=== PATIENT | male | born 2000 | race American Indian/Alaskan Native ===

== ENCOUNTER 2020-12-20 23:36 | Emergency (ER) | payer MEDICAID ==
[2020-12-21 01:19] VITALS: BP 142/80; PULSE 82
[2020-12-21] MEDS ORDERED: Ibuprofen 400 MG Tab PO ONE (03:05)
--- NOTE | 2020-12-21 03:14 | EDM.PDOC ---
ED HPI GENERAL MEDICAL PROBLEM - General Chief Complaint: Lower Extremity Injury/Pain Stated Complaint: PELVIC HIP PAIN Time Seen by Provider: 12/21/20 02:30 Source of Information: Reports: Patient, Family (Grandmother), RN, RN Notes Reviewed History Limitations: Reports: No Limitations - History of Present Illness INITIAL COMMENTS - FREE TEXT/NARRATIVE: Nigel is a 20 y/o male with a history of traumatic pelvic fracture who presents to the ED via personal vehicle with grandmother for complaints of left hip pain. The patient states he has been experiencing chronic pain to this hip since his injury and was evaluated at the [facility] this past week following a fall. X-rays were performed at this appointment and the patient was told he required follow up with his orthopedic surgeon. He characterizes his current pain as sharp and localized to the left, lateral hip. He denies any fall today, loss of motor or sensory function to the LLE, inability to void, bowel/bladder incontinence, or hematuria. He has taken no medication for his pain and has not trial any supportive cares. Left Hip Pain Score (Numeric/FACES): 8 - Related Data Allergies Allergy/AdvReac Type Severity Reaction Status Date / Time No Known Allergies Allergy Verified 12/21/20 01:24 Home Meds: Home Meds . [No Known Home Meds] 06/06/14 [History] Past Medical History - Past Health History Medical/Surgical History: Denies Medical/Surgical History Social & Family History - Tobacco Use Tobacco Use Status *Q: Current Every Day Tobacco User Years of Tobacco use: 4 Packs/Tins Daily: 0.5 - Caffeine Use Caffeine Use: Reports: None - Recreational Drug Use Recreational Drug Use: No Review of Systems - Review of Systems Review Of Systems: Comprehensive ROS is negative, except as noted in HPI. ED EXAM, GENERAL - Physical Exam Exam: See Below Exam Limited By: No Limitations General Appearance: No Apparent Distress, Thin, Other (Patient sleeping upon writers entrance to the room; Roused appropriately and active during assessment) Eye Exam: Bilateral Eye: EOMI, Normal Inspection, PERRL (4mm) Ears: Normal External Exam, Normal Canal, Hearing Grossly Normal, Normal TMs Ear Exam: Bilateral Ear: Auricle Normal, Canal Normal, TM normal Nose: Normal Inspection, Normal Mucosa, No Blood Throat/Mouth: Normal Inspection, Normal Lips, Normal Teeth, Normal Gums, Normal Oropharynx, Normal Voice, No Airway Compromise Head: Atraumatic, Normocephalic Neck: Normal Inspection, Supple, Non-Tender, Full Range of Motion. No: Lymphadenopathy (L), Lymphadenopathy (R) Respiratory/Chest: No Respiratory Distress, Lungs Clear, Normal Breath Sounds, No Accessory Muscle Use, Chest Non-Tender Cardiovascular: Normal Peripheral Pulses, Regular Rate, Rhythm, No Edema, No Gallop, No JVD, No Murmur, No Rub Peripheral Pulses: 1+: Posterior Tibial (L), Posterior Tibial (R), 2+: Radial (L), Radial (R), Dorsalis Pedis (L), Dorsalis Pedis (R) GI/Abdominal: Normal Bowel Sounds, Soft, Non-Tender, No Organomegaly, No Distention, No Abnormal Bruit, No Mass. No: Guarding, Rigid, Rebound Back Exam: Normal Inspection, Full Range of Motion. No: CVA Tenderness (L), CVA Tenderness (R), Muscle Spasm, Paraspinal Tenderness, Vertebral Tenderness Extremities: Normal Range of Motion, No Pedal Edema, Normal Capillary Refill, Leg Pain (To left lateral hip). No: Joint Swelling, Increased Warmth, Mottled, Pallor, Redness Neurological: Alert, Oriented, CN II-XII Intact, Normal Cognition, Normal Gait, Normal Reflexes, No Motor/Sensory Deficits Psychiatric: Normal Affect, Normal Mood Skin Exam: Warm, Dry, Intact, Normal Color, No Rash. No: Cyanosis, Jaundice, Mottled, Pallor Lymphatic: No Adenopathy Course - Vital Signs Last Recorded V/S: Last Vital Signs Temp 98.3 F 12/21/20 01:18 Pulse 82 12/21/20 01:18 Resp 20 12/21/20 01:18 BP 142/80 H 12/21/20 01:18 Pulse Ox 99 12/21/20 01:18 - Orders/Labs/Meds Meds: Medications Discontinued Medications Generic Name Dose Route Start Last Admin Trade Name Freq PRN Reason Stop Dose Admin Ibuprofen 400 mg 12/21/20 03:05 12/21/20 03:13 Ibuprofen 400 Mg Tab PO 12/21/20 03:06 400 mg ONETIME ONE Administration - Re-Assessments/Exams Free Text/Narrative Re-Assessment/Exam: 12/21/20 Patient back to sleep immediately upon promotion writer leaving room following assessment. Ibuprofen 400mg administered for pain. Findings of examination reviewed with patient and grandmother. Will treat nausea with Zofran. Discussed supportive cares for hip pain, as well as red flag signs and symptoms which would warrant reevaluation. Patient instructed to follow up with his orthopedic surgeon regarding today's visit. Discussed as patient is only a few month out from initial surgery, he does not require a new referral and should contact his surgeon's clinic. Patient and grandmother verbalized understanding and agreement with the plan of care. Departure - Departure Time of Disposition: 03:08 Disposition: Home, Self-Care 01 Condition: Good Clinical Impression: History of pelvic fracture, Hip pain, left, Fall from ground level - Discharge Information *PRESCRIPTION DRUG MONITORING PROGRAM REVIEWED*: Not Applicable *COPY OF PRESCRIPTION DRUG MONITORING REPORT IN PATIENT NELLY: Not Applicable Instructions: Hip Pain Referrals: Wilmer Dalton [Primary Care Provider] - Forms: ED Department Discharge Additional Instructions: 1.) Follow up with your orthopedic surgeon regarding ongoing pain; you do not require another referral as injury was within the last 12 months. 2.) You may take ibuprofen (Advil/Motrin) 400mg every six hours, as pain persists. You may also take acetaminophen (Tylenol) 650mg every six hours, as pain persists. You may stagger these medications so you are receiving a dose every three hours. 3.) You may alternate heat and ice to the affected area, as pain persists. Sepsis Event Note (ED) - Evaluation Sepsis Screening Result: No Definite Risk
== END 2020-12-21 03:23 | disposition home or self-care (01) ==
LOC: DL.ED 23:36
DX: M25.552 Pain in left hip (principal); Z72.0 Tobacco use; W18.39XA Other fall on same level, initial encounter
CPT/HCPCS: 99283; A9270

== ENCOUNTER → 2021-05-30 20:52 | Emergency (ER) | payer MEDICAID | END | disposition left against medical advice (07) | LOC: DL.ED 20:52 | DX: Z53.21 Procedure and treatment not carried out due to patient leaving prior to being seen by health care provider (principal) ==

== ENCOUNTER 2022-04-23 15:24 | Emergency (ER) | payer MEDICAID ==
[2022-04-23] MEDS ORDERED: HYDROmorphone 0.5 MG/0.5 ML Syringe IVPUSH ONE (15:30)
[2022-04-23 15:40] VITALS: BP 127/111; PULSE 116
== END 2022-04-23 16:27 | disposition home or self-care (01) ==
LOC: DL.ED 15:24
DX: M25.552 Pain in left hip (principal); W18.40XA Slipping, tripping and stumbling without falling, unspecified, initial encounter
CPT/HCPCS: 96374; 99282; 99284-25

== ENCOUNTER 2023-10-23 10:07 | Emergency (ER) | payer SELFPAY ==
[2023-10-23 10:40] LABS: BASOPHILS PERCENT AUTO 0.2 % (0.0-1.0); EOSINOPHILS PERCENT AUTO 0.3 % (1.0-3.0); HEMATOCRIT 40.9 % (40.0-54.0); LYMPHOCYTES PERCENT AUTO 19.4 % (20.5-50.1); MEAN CORPUSCULAR HEMOGLOBIN 31.1 pg (27.0-34.0); MEAN CORPUSCULAR HGB CONC 34.2 g/dL (33.0-35.0); MEAN CORPUSCULAR VOLUME 90.9 fL (80-100); MONOCYTES PERCENT AUTO 11.9 % (2-8); NEUTROPHILS PERCENT AUTO 68.2 % (42.2-75.2); PLATELET COUNT,PLT 270 10^3/uL (150-450); WHITE BLOOD CELL COUNT,WBC 9.5 10^3/uL (5.0-10.0)
[2023-10-23] MEDS: Sodium Chloride 0.9% 10 ML Syringe FLUSH PRN (10:56)
[2023-10-23] MEDS: Sodium Chloride 0.9% 1,000 ML IV ONE (10:56)
[2023-10-23] MEDS: Ketorolac 30 MG/ML SDV IVPUSH ONE (11:01)
[2023-10-23] MEDS: Piperacillin/Tazobactam 4.5 GM in Sodium Chloride 0.9% 100 ML IV ONE (11:06)
[2023-10-23 11:09] LABS: LACTIC ACID 1.5 mmol/L (0.4-2.0)
[2023-10-23 11:18] LABS: A/G RATIO 0.8; ALANINE AMINOTRANSFERASE,ALT 37 U/L (16-63); ALBUMIN 3.5 g/dL (3.4-5.0); ALKALINE PHOSPHATASE 104 U/L (46-116); ANION GAP 13.6 mEq/L (7-13); ASPARTATE AMNIOTRANSFERASE,AST 20 U/L (15-37); BILIRUBIN TOTAL 1.1 mg/dL (0.2-1.0); BLOOD UREA NITROGEN,BUN 12 mg/dL (7-18); CALCIUM 8.5 mg/dL (8.5-10.1); CARBON DIOXIDE,CO2 24 mmol/L (21-32); CHLORIDE,CL 103 mmol/L (98-107); CREATININE 0.86 mg/dL (0.70-1.30); EST CRCL DRUG DOSING (CG) 153.99 mL/min; ETHANOL BLOOD MEDICAL 57 mg/dL (0); GLUCOSE RANDOM 103 mg/dL (70-99); POTASSIUM,K 3.6 mmol/L (3.5-5.1); PROTEIN TOTAL,TP 7.8 g/dL (6.4-8.2); SODIUM,NA 137 mmol/L (136-145)
[2023-10-23 11:19] LABS: ESTIMATED GFR 124 mL/min (>=60)
[2023-10-23 11:32] LABS: APPEARANCE,URINE CLEAR (CLEAR); BILIRUBIN,URINE NEGATIVE (NEGATIVE); COLOR,URINE YELLOW (YELLOW); GLUCOSE,URINE NEGATIVE (NEGATIVE); KETONES,URINE NEGATIVE (NEGATIVE); LEUKOCYTE ESTERASE,URINE NEGATIVE (NEGATIVE); NITRITE,URINE NEGATIVE (NEGATIVE); OCCULT BLOOD,URINE TRACE-INTACT (NEGATIVE); PH,URINE 5.5 (5.0-9.0); PROTEIN,URINE NEGATIVE (NEGATIVE); UROBILINOGEN,URINE 0.2 mg/dL (0.2-1.0)
[2023-10-23 11:37] LABS: CORONAVIRUS COVID-19 NAA NEGATIVE (NEGATIVE); INFLUENZA A NAA NEGATIVE (NEGATIVE); INFLUENZA B NAA NEGATIVE (NEGATIVE); RESPIRATORY SYNCYTIAL VIR NAA NEGATIVE (NEGATIVE)
[2023-10-23 11:41] LABS: AMPHETAMINES,URINE POSITIVE (NEGATIVE); BARBITURATES,URINE NEGATIVE (NEGATIVE); BENZODIAZEPINE,URINE NEGATIVE (NEGATIVE); MDMA (ECSTASY), URINE POSITIVE (NEGATIVE); METHADONE,URINE NEGATIVE (NEGATIVE); METHAMPHETAMINES,URINE POSITIVE (NEGATIVE); OPIATES,URINE NEGATIVE (NEGATIVE); OXYCODONE,URINE NEGATIVE (NEGATIVE); PHENCYCLIDINE,URINE NEGATIVE (NEGATIVE); TCA,URINE NEGATIVE (NEGATIVE)
[2023-10-23 11:58] LABS: BACTERIA,URINE FEW /HPF (0-FEW/HPF); EPITHELIAL CELLS,URINE RARE /HPF (NOT SEEN); MUCUS,URINE FEW /LPF (NOT SEEN); RBC,URINE 0-5 /HPF (0-5); WBC,URINE 0-5 /HPF (0-5/HPF)
[2023-10-23 12:27] VITALS: BP 138/69; PULSE 77
== END 2023-10-23 12:37 | disposition home or self-care (01) ==
LOC: DL.ED 10:07
DX: S22.41XA Multiple fractures of ribs, right side, initial encounter for closed fracture (principal); J98.4 Other disorders of lung; F10.10 Alcohol abuse, uncomplicated; F19.10 Other psychoactive substance abuse, uncomplicated; Y09 Assault by unspecified means; Y90.9 Presence of alcohol in blood, level not specified
CPT/HCPCS: 0241U; 36415; 71046; 71100; 80053; 80305; 80307; 81001; 83605; 84145; 85025; 87040; 96365; 96375; 99285; J1885; J2543; J3490; J7030; 99284

== ENCOUNTER 2023-10-23 19:15 | Emergency (ER) | payer SELFPAY ==
[2023-10-23 19:32] VITALS: BP 149/99; PULSE 112
[2023-10-23] MEDS: Ketorolac 30 MG/ML SDV IM ONE (19:48)
[2023-10-23] MEDS: Clindamycin HCl 150 MG Cap PO ONE (19:48)
[2023-10-23] MEDS: Doxycycline Monohydrate 100 MG Cap PO ONE (20:01)
== END 2023-10-23 20:17 | disposition home or self-care (01) ==
LOC: DL.ED 19:15
DX: J98.4 Other disorders of lung (principal); F10.10 Alcohol abuse, uncomplicated; F19.10 Other psychoactive substance abuse, uncomplicated; S22.41XD Multiple fractures of ribs, right side, subsequent encounter for fracture with routine healing; X58.XXXD Exposure to other specified factors, subsequent encounter; Y90.9 Presence of alcohol in blood, level not specified
CPT/HCPCS: 96372; 99284; A9270; J1885

== ENCOUNTER 2023-12-10 14:47 | Emergency (ER) | payer SELFPAY | END 2023-12-10 15:39 | disposition left against medical advice (07) | LOC: DL.ED 14:47 | DX: Z53.21 Procedure and treatment not carried out due to patient leaving prior to being seen by health care provider (principal) ==

== ENCOUNTER 2024-05-08 15:23 | Emergency (ER) | payer SELFPAY ==
[2024-05-08 15:37] VITALS: BP 145/88; PULSE 87
[2024-05-08] MEDS: Ketorolac 30 MG/ML SDV IM ONE (16:35)
== END 2024-05-08 16:45 | disposition home or self-care (01) ==
LOC: DL.ED 15:23
DX: S79.911A Unspecified injury of right hip, initial encounter (principal); F17.210 Nicotine dependence, cigarettes, uncomplicated; W10.9XXA Fall (on) (from) unspecified stairs and steps, initial encounter; Y92.59 Other trade areas as the place of occurrence of the external cause
CPT/HCPCS: 73502; 96372; 99284; J1885

== ENCOUNTER 2024-06-10 13:54 | Emergency (ER) | payer MEDICAID ==
[2024-06-10 14:54] VITALS: BP 109/88; PULSE 100
== END 2024-06-10 14:53 | disposition left against medical advice (07) ==
LOC: DL.ED 13:54
DX: Z53.21 Procedure and treatment not carried out due to patient leaving prior to being seen by health care provider (principal)

== ENCOUNTER 2024-06-12 03:51 | Emergency (ER) | payer MEDICAID ==
[2024-06-12 04:19] LABS: BASOPHILS PERCENT AUTO 0.3 % (0.0-1.0); EOSINOPHILS PERCENT AUTO 0.5 % (1.0-3.0); HEMATOCRIT 45.1 % (40.0-54.0); HEMOGLOBIN 15.2 g/dL (14.0-18.0); LYMPHOCYTES PERCENT AUTO 46.6 % (20.5-50.1); MEAN CORPUSCULAR HEMOGLOBIN 30.5 pg (27.0-34.0); MEAN CORPUSCULAR HGB CONC 33.7 g/dL (33.0-35.0); MEAN CORPUSCULAR VOLUME 90.4 fL (80-100); MONOCYTES PERCENT AUTO 5.6 % (2-8); PLATELET COUNT,PLT 275 10^3/uL (150-450); RED BLOOD CELL COUNT 4.99 10^6/uL (4.6-6.2); WHITE BLOOD CELL COUNT,WBC 7.5 10^3/uL (5.0-10.0)
[2024-06-12] MEDS: MVI, Adult with Vitamin K 10 ML, Folic Acid 1 MG, Thiamine 100 MG in Lactated Ringers 1... IV ONE (04:34)
[2024-06-12 04:48] LABS: A/G RATIO 1.1; ANION GAP 7.2 mEq/L (7-13); BILIRUBIN TOTAL 0.7 mg/dL (0.2-1.0); BUN/CREATININE RATIO 15.1 (No establ ref range); CREATININE 0.93 mg/dL (0.70-1.30); EST CRCL DRUG DOSING (CG) 143.8 mL/min; POTASSIUM,K 3.2 mmol/L (3.5-5.1); PROTEIN TOTAL,TP 7.6 g/dL (6.4-8.2)
[2024-06-12] MEDS: Ketorolac 30 MG/ML SDV IVPUSH ONE (05:36)
[2024-06-12] MEDS: Potassium Chloride 10 MEQ Tab.ER PO ONE (05:36)
[2024-06-12 06:00] VITALS: BP 131/91; PULSE 76
== END 2024-06-12 05:53 | disposition home or self-care (01) ==
LOC: DL.ED 03:51
DX: M25.551 Pain in right hip (principal); E86.0 Dehydration; E87.6 Hypokalemia; E87.1 Hypo-osmolality and hyponatremia; F10.129 Alcohol abuse with intoxication, unspecified; F17.210 Nicotine dependence, cigarettes, uncomplicated
CPT/HCPCS: 36415; 70450; 72192; 80053; 80307; 85025; 96365; 96375; 99284; 99285; A9270; J1885; J3411; J7120; J3490

== ENCOUNTER 2025-03-09 13:10 | Emergency (ER) | payer MEDICAID ==
[2025-03-09 13:29] VITALS: BP 143/88; PULSE 102
[2025-03-09] MEDS: Clotrimazole 1% Crm 30 GM Tube TOP SCH (13:43)
== END 2025-03-09 13:55 | disposition home or self-care (01) ==
LOC: DL.ED 13:10
DX: B35.6 Tinea cruris (principal); F17.210 Nicotine dependence, cigarettes, uncomplicated; Z86.16 Personal history of COVID-19
CPT/HCPCS: 99282; A9270